=== PATIENT | female | born 1990 | race Caucasian/White ===

== ENCOUNTER 2019-08-13 16:08 | Emergency (ER) | payer BC, SELFPAY ==
[2019-08-13 16:29] VITALS: BP 119/93; PULSE 88; RESP 16; TEMP 37.2; O2SAT 97
--- NOTE | 2019-08-13 16:52 | ED.URI ---
HPI - URI/Sore Throat General Chief Complaint: Upper Respiratory Infection Stated Complaint: congestion/sob/cough Time Seen by Provider: 08/13/19 16:46 Source: patient and RN notes reviewed Mode of arrival: ambulatory Limitations: no limitations History of Present Illness HPI Narrative: Patient presents today with a 2-day history of productive cough, shortness of breath, nasal congestion, fatigue. Denies fever. History of asthma. Smokes 1 pack/day. She has been using severe sinus medication and her inhaler. The sinus medication has been working, but the inhaler has not been working for her shortness of breath. MD elicited complaint: cough and nasal congestion Related Data Home Medications Medication Instructions Recorded Confirmed albuterol sulfate 08/13/19 Allergies Allergy/AdvReac Type Severity Reaction Status Date / Time No Known Allergies Allergy Verified 08/13/19 16:16 Review of Systems Review of Systems: Narrative: CONSTITUTIONAL: Denies body aches, fever, chills, or sweats.+ Fatigue EYES: Denies visual changes, redness, or discharge. ENT: Denies rhinorrhea, sore throat, or otalgia.+ Congestion CARDIOVASCULAR: Denies chest pain, palpitations, or edema. RESPIRATORY: + Cough, shortness of breath GASTROINTESTINAL: Denies abdominal pain, nausea, vomiting, or diarrhea. GENITOURINARY: Denies dysuria or hematuria. SKIN: Denies rash, itching, or wounds. MUSCULOSKELETAL: Denies back pain, joint pain, or myalgia. NEUROLOGIC: Denies headache, numbness, tingling, or weakness. PSYCH: Denies depression or anxiety. [facility] Past Medical History Medical History (Updated 08/13/19 @ 17:28 by Radha Hutchinson, [facility], ) Asthma Comments At time of signature, I have reviewed and agree with nursing past medical, surgical, social and family history unless otherwise noted. Please see nursing chart for further information. There is no relevant family history pertinent to the presenting complaint Exam Narrative: Exam Narrative: GENERAL: Mildly ill-appearing, well-nourished, and in no acute distress. HEAD: Normocephalic, atraumatic. EYES: EOMI. No redness or drainage. Conjunctivae normal. ENT: Mucous membranes pink and moist. Nares clear. No rhinorrhea. TMs normal bilaterally. Throat normal. Uvula midline. NECK: Normal AROM. Supple. No lymphadenopathy. CHEST: No respiratory distress. Inspiratory and expiratory wheezes throughout. Diminished in the bilateral bases.. HEART: Regular rate and rhythm. No murmur appreciated. Normal peripheral pulses. EXTREMITIES: Normal range of motion. No edema. SKIN: Warm, dry, no rash. NEURO: No focal deficits. Alert and oriented x3. Gait steady. PSYCH: Normal affect. No signs of depression or anxiety. Course Course Emergency Course: 1726: Patient states she is feeling better after DuoNeb treatment. Aeration has increased, wheezing is decreased Vital Signs Vital signs: Vital Signs Temperature 99.0 F 08/13/19 16:29 Pulse Rate 88 08/13/19 16:29 Respiratory Rate 16 08/13/19 16:29 Blood Pressure 119/93 H 08/13/19 16:29 Pulse Oximetry 97 08/13/19 16:29 Temperature 99.0 F 08/13/19 16:29 Pulse Rate 88 08/13/19 16:29 Respiratory Rate 16 08/13/19 16:29 Blood Pressure 119/93 H 08/13/19 16:29 Pulse Oximetry 97 08/13/19 16:29 Reviewed. Pt has been instructed to follow up with her PCP regarding her elevated blood pressure today. MDM - URI/Sore Throat Differential Diagnosis Differential diagnosis: Likely upper respiratory infection, viral infection and bronchitis Critical Care Time Critical Care Time Critical Care Time: No Discharge Plan Discharge Clinical Impression: Upper respiratory infection Qualifiers: URI type: unspecified URI Qualified Code(s): J06.9 - Acute upper respiratory infection, unspecified Asthma exacerbation Qualifiers: Asthma severity: unspecified severity Asthma persistence: unspecified Qualified Code(s): J45.901 - Unsp
[2019-08-13] MEDS: ALBUTEROL SULFATE NEB 2.5 MG/3 ML INH INHALATION (16:57)
[2019-08-13] MEDS: IPRATROPIUM BR 0.02% INH SOLN 0.5 MG/2.5 ML VIAL INHALATION (16:58)
== END 2019-08-13 17:30 | disposition home or self-care (01) ==
PROVIDERS: Emergency Provider Nurse Practitioner
DX: J06.9 Acute upper respiratory infection, unspecified (principal); J45.901 Unspecified asthma with (acute) exacerbation; F17.200 Nicotine dependence, unspecified, uncomplicated
CPT/HCPCS: 94640; 99203; G0463